=== PATIENT | male | born 1935 | race Caucasian/White ===

== ENCOUNTER → 2016-10-10 | Outpatient (REF) ==
[~2016-10-10] MED LIST: AMBIEN 5MG TABLE5 MG PO; COENZYME Q-101 POW PO; COREG 6.256.25 MG/TA PO; EPA/GLA1 SGL PO; INDOCIN 25MG CA25 MG PO; LASIX 20MG TABL20 MG PO; NORCO 325 MG-51 TAB PO; ZESTRIL 10MG10 MG PO; ZOCOR 20MG20 MG PO; [UNRECOGNIZED DRUG - OTHER] PO
[2016-10-10 10:58] LABS: PSA-TOTAL 0.48 ng/mL (0-4)
[2016-10-10 11:36] LABS: THYROID STIMULATING HORMONE 2.9 uIU/mL (0.465-4.680)
== END ==
LOC: ZLAB.WCH 10:11
PROVIDERS: Medical Genetics Clinical Genetics (M.D.)
DX: Z01.89 Encounter for other specified special examinations (principal)
CPT/HCPCS: G0103

== ENCOUNTER → 2017-03-19 | Outpatient (REF) ==
[2017-03-21 01:27] LABS: CALCIUM 9.1 mg/dL (8.4-10.2); CREATININE, serum 1.21 mg/dL (0.66-1.25); POTASSIUM 4.4 mmol/L (3.4-5.0)
== END ==
LOC: ZLAB.WCH 18:18
PROVIDERS: Internal Medicine Cardiovascular Disease
DX: Z01.89 Encounter for other specified special examinations (principal)

== ENCOUNTER → 2017-04-15 | Outpatient (REF) ==
[2017-04-15 19:40] LABS: PSA-TOTAL 0.5 ng/mL (0-4); THYROID STIMULATING HORMONE 3.12 uIU/mL (0.465-4.680)
== END ==
LOC: ZLAB.WCH 18:28
PROVIDERS: Internal Medicine
DX: Z01.89 Encounter for other specified special examinations (principal)
CPT/HCPCS: G0103

== ENCOUNTER → 2017-05-16 | Outpatient (CLI) | payer MEDICARE, BC | LOC: COL.PUL 07:35 | DX: R06.00 Dyspnea, unspecified (principal) ==

== ENCOUNTER → 2017-10-10 | Outpatient (REF) | LOC: ZLAB.WCH 18:26 | DX: Z01.89 Encounter for other specified special examinations (principal) ==

== ENCOUNTER → 2018-06-03 | Outpatient (REF) ==
[2018-06-03 17:03] LABS: THYROID STIMULATING HORMONE 3.85 uIU/mL (0.465-4.680)
[2018-06-03 17:19] LABS: PSA-TOTAL 0.46 ng/mL (0-4)
== END ==
LOC: ZLAB.WCH 16:09
PROVIDERS: Internal Medicine
DX: Z01.89 Encounter for other specified special examinations (principal)
CPT/HCPCS: G0103

== ENCOUNTER 2021-06-03 23:31 | Inpatient (IN) | payer MEDICARE, BC ==
[~2021-06-03] VITALS: Ht 183 cm; Wt 81.2 kg
[2021-06-03] MEDS ORDERED: MYSOLINE 5050 MG/TAB PO (23:52)
[2021-06-03] MEDS ORDERED: KLONOPIN 1MG1 MG PO (23:52)
[2021-06-03] MEDS ORDERED: [UNRECOGNIZED DRUG - OTHER] PO (23:53)
[2021-06-03] MEDS ORDERED: COLCHICINE PO (23:53)
[2021-06-03] MEDS ORDERED: SYNTHROID0.05 MG/TA PO (23:53)
[2021-06-03] MEDS ORDERED: PRINIVIL20 MG PO (23:55)
[2021-06-04 01:30] VITALS: BP 156/70; PULSE 71; TEMP 97.4
[2021-06-04 02:38] LABS: BASO % 0.4 % (0.0-2.0); EOS # 0.4 (0.0-0.7); EOS % 4.3 % (0-4.0); GRAN # 5.8 (1.4-6.5); GRAN % 67.1 % (42.2-75.2); HEMATOCRIT 37.6 % (42.0-52.0); HEMOGLOBIN 12.6 g/dl (13.5-18.0); LYMPH # 1.5 (1.2-3.4); MEAN CELL VOLUME 91 fl (80.0-100.0); MEAN CORPUSCULAR HEMOGLOBIN 30 pg (27.0-31.0); MEAN CORPUSCULAR HGB CONC 34 g/dl (33.0-37.0); MONO # 0.8 (0.1-0.6); MONO % 9.8 % (1.7-9.3); PLATELET COUNT 152 K/mm3 (130-400); RED BLOOD COUNT 4.14 M/mm3 (4.20-5.60); REDCELL DISTRIBUTION WIDTH-CV 14.4 % (11.5-14.5)
[2021-06-04 02:41] LABS: COLLECTION METHOD CATHETER
[2021-06-04 02:50] LABS: ALBUMIN 3.7 gm/dL (3.5-5.0); BILIRUBIN,TOTAL 0.7 mg/dL (0.0-1.0); CALCIUM 8.8 mg/dL (8.4-10.2); CREATININE, serum 0.98 (0.66-1.25); POTASSIUM 3.8 mmol/L (3.4-5.0); TOTAL PROTEIN 6.8 gm/dL (6.4-8.2)
[2021-06-04 02:54] LABS: INR 1.1 (0.8-3.0); PROTHROMBIN TIME 12.4 SECONDS (9.7-12.8)
[2021-06-04 02:58] LABS: PRE ALBUMIN 18.3 mg/dL (17.6-36.0)
[2021-06-04 03:04] LABS: MUCOUS Present /lpf; PH 5 (5-8); SQUAMOUS EPITHELIAL None Seen /hpf; URINE APPEARANCE Clear; URINE BACTERIA Rare /hpf; URINE BILIRUBIN Negative (NEGATIVE); URINE BLOOD 1+ (NEGATIVE); URINE COLOR Yellow; URINE GLUCOSE Negative (NEGATIVE); URINE KETONE Negative (NEGATIVE); URINE LEUKOCYTE ESTERASE Negative (NEGATIVE); URINE NITRATE Negative (NEGATIVE); URINE PROTEIN(semi-quant) Negative (NEGATIVE); URINE UROBILINOGEN Negative (NEGATIVE)
[2021-06-04 08:00] VITALS: BP 146/63; PULSE 67; TEMP 97.4
[2021-06-04 11:27] VITALS: BP 159/63; PULSE 60; TEMP 97.8
[2021-06-04 16:51] VITALS: BP 150/55; PULSE 61; TEMP 98.1
[2021-06-04 20:00] VITALS: BP 149/66; PULSE 66; TEMP 98.3
[2021-06-05 04:05] VITALS: BP 153/63; PULSE 62; TEMP 98
[2021-06-05 06:52] LABS: HEMOGLOBIN 11.9 g/dl (13.5-18.0); MEAN CELL VOLUME 93 fl (80.0-100.0); MEAN CORPUSCULAR HEMOGLOBIN 31 pg (27.0-31.0); MEAN CORPUSCULAR HGB CONC 33 g/dl (33.0-37.0); MEAN PLATELET VOLUME 10.2 fl (7.4-10.4); PLATELET COUNT 163 K/mm3 (130-400); RED BLOOD COUNT 3.86 M/mm3 (4.20-5.60); REDCELL DISTRIBUTION WIDTH-CV 14.1 % (11.5-14.5)
[2021-06-05 06:55] LABS: HEMATOCRIT 35.9 % (42.0-52.0)
[2021-06-05 07:19] LABS: CALCIUM 8.3 mg/dL (8.4-10.2); CREATININE, serum 0.86 (0.66-1.25); POTASSIUM 3.6 mmol/L (3.4-5.0)
[2021-06-05 08:00] VITALS: BP 143/70; PULSE 78; TEMP 97.8
[2021-06-05 11:19] VITALS: BP 150/88; PULSE 62; TEMP 97.5
[2021-06-05 15:15] VITALS: BP 153/61; PULSE 66; TEMP 97.7
[2021-06-05 19:23] VITALS: BP 162/68; PULSE 78; TEMP 98.4
[2021-06-05 23:22] VITALS: BP 163/74; PULSE 75; TEMP 98.5
[2021-06-06] VITALS (16 sets, daily range): BP systolic 124–151; BP diastolic 50–84; PULSE 59–70; TEMP 97.5–98.4
[2021-06-06 07:17] LABS: BASO % 0.5 % (0.0-2.0); EOS # 0.5 (0.0-0.7); EOS % 6.2 % (0-4.0); GRAN # 4.4 (1.4-6.5); GRAN % 56.6 % (42.2-75.2); HEMATOCRIT 37.2 % (42.0-52.0); HEMOGLOBIN 12.4 g/dl (13.5-18.0); LYMPH % 25.1 % (20.0-51.0); MEAN CELL VOLUME 92 fl (80.0-100.0); MEAN CORPUSCULAR HEMOGLOBIN 31 pg (27.0-31.0); MEAN CORPUSCULAR HGB CONC 33 g/dl (33.0-37.0); MEAN PLATELET VOLUME 10.5 fl (7.4-10.4); MONO # 0.9 (0.1-0.6); MONO % 11.1 % (1.7-9.3); PLATELET COUNT 159 K/mm3 (130-400); RED BLOOD COUNT 4.03 M/mm3 (4.20-5.60); REDCELL DISTRIBUTION WIDTH-CV 14.1 % (11.5-14.5)
[2021-06-06 07:55] LABS: CALCIUM 8.3 mg/dL (8.4-10.2); CREATININE, serum 0.86 (0.66-1.25); POTASSIUM 3.8 mmol/L (3.4-5.0)
[2021-06-07 05:26] VITALS: BP 136/52; PULSE 75; TEMP 98.9
[2021-06-07 07:12] LABS: HEMOGLOBIN 11.8 g/dl (13.5-18.0)
[2021-06-07 07:18] LABS: HEMATOCRIT 36.1 % (42.0-52.0)
[2021-06-07 07:36] VITALS: BP 99/54; PULSE 77; TEMP 98.4
[2021-06-07 11:20] VITALS: BP 107/56; PULSE 69; TEMP 97.4
[2021-06-07 15:54] VITALS: BP 136/50; PULSE 73; TEMP 97.8
[2021-06-07 19:47] VITALS: BP 134/54; PULSE 72; TEMP 98.2
[2021-06-08 00:21] VITALS: BP 148/57; PULSE 75; TEMP 98.3
[2021-06-08 03:54] VITALS: BP 126/53; PULSE 66; TEMP 98.1
[2021-06-08 07:15] LABS: BASO % 0.3 % (0.0-2.0); EOS # 0.2 (0.0-0.7); EOS % 2.1 % (0-4.0); GRAN # 5.9 (1.4-6.5); GRAN % 65.7 % (42.2-75.2); HEMOGLOBIN 11.3 g/dl (13.5-18.0); LYMPH # 1.7 (1.2-3.4); LYMPH % 18.9 % (20.0-51.0); MEAN CELL VOLUME 91 fl (80.0-100.0); MEAN CORPUSCULAR HEMOGLOBIN 31 pg (27.0-31.0); MEAN CORPUSCULAR HGB CONC 33 g/dl (33.0-37.0); MEAN PLATELET VOLUME 10.5 fl (7.4-10.4); MONO # 1.1 (0.1-0.6); MONO % 12.1 % (1.7-9.3); PLATELET COUNT 178 K/mm3 (130-400)
[2021-06-08 07:22] VITALS: BP 130/58; PULSE 69; TEMP 97.5
[2021-06-08 07:23] LABS: CALCIUM 8.2 mg/dL (8.4-10.2); CREATININE, serum 0.95 (0.66-1.25); HEMATOCRIT 33.8 % (42.0-52.0)
[2021-06-08] MEDS ORDERED: ASPI325T6 PO (08:56)
[2021-06-08] MEDS ORDERED: NORCO 325 MG-7.1 TAB PO (08:57)
[2021-06-08 12:16] VITALS: BP 135/57; PULSE 76; TEMP 98.4
[2021-06-08 15:12] VITALS: BP 139/57; PULSE 72; TEMP 97.5
[2021-06-08 19:22] VITALS: BP 121/72; PULSE 96; TEMP 98.2
[2021-08-08] MEDS ORDERED: ASPIRIN 32325 MG/TAB PO (13:31)
== END 2021-06-08 20:30 | DRG 481 ==
LOC: MEDICAL 23:31 → SURG 06-04 00:17
PROVIDERS: Nurse Practitioner Family; Orthopaedic Surgery; Physician Assistant; ADMIT Internal Medicine
PROC: 0QH734Z Insertion of Internal Fixation Device into Left Upper Femur, Percutaneous Approach (ICD-10-PCS; principal; 2021-06-06 13:45)
DX: S72.002A Fracture of unspecified part of neck of left femur, initial encounter for closed fracture (principal); I50.20 Unspecified systolic (congestive) heart failure; Z95.0 Presence of cardiac pacemaker; E03.9 Hypothyroidism, unspecified; F03.90 Unspecified dementia, unspecified severity, without behavioral disturbance, psychotic disturbance, mood disturbance, and anxiety; I25.10 Atherosclerotic heart disease of native coronary artery without angina pectoris; Z96.653 Presence of artificial knee joint, bilateral; Z96.611 Presence of right artificial shoulder joint; Z66 Do not resuscitate; I11.0 Hypertensive heart disease with heart failure; Z85.038 Personal history of other malignant neoplasm of large intestine; I25.2 Old myocardial infarction
CPT/HCPCS: 99231-AI; 99232-AI; 99239; A4314; A9284; C1713; J0690; J1644; J2250; J2405; J3010

== ENCOUNTER 2021-08-11 08:44 | Outpatient (CLI) | payer MEDICARE, BC ==
[2021-08-11] VITALS (18 sets, daily range): BP systolic 122–171; BP diastolic 27–94; PULSE 64–96; TEMP 97.9
[~2021-08-11 08:44] MED LIST changes: +ASPI325T6 PO; +ASPIRIN 32325 MG/TAB PO; +COLCHICINE PO; +KLONOPIN 1MG1 MG PO; +MYSOLINE 5050 MG/TAB PO; +NORCO 325 MG-7.1 TAB PO; +PRINIVIL20 MG PO; +SYNTHROID0.05 MG/TA PO; +[UNRECOGNIZED DRUG - OTHER] PO
[2021-08-11] MEDS ORDERED: OMEGA-3 1000 MG1 CAP PO (09:31)
[2021-08-11] MEDS ORDERED: NORVASC2.5 MG PO (09:32)
[2021-08-11] MEDS ORDERED: B-121000 MCG PO (09:33)
[2021-08-11] MEDS ORDERED: THE MEDICINE S200 M2 PO (09:35)
--- NOTE | 2021-08-11 10:55 | NUR ---
PT SUPINE IN CT SCANNER, DR BOWIE IN TO START PROCEDURE
--- NOTE | 2021-08-11 11:15 | NUR ---
2 SAMPLES RECIEVED IN FORMULIN, BANDAID OVER SITE, PT ROLLED OVER TO CART, VSS TO EU
--- NOTE | 2021-08-11 14:40 | NUR ---
Pt escorted to exit at this time. Pt has had his repeat xray and is ready for discharge. I have reviewed dc instructions r/t lung biopsy with pt and his . They verbalize understanding. IV was dc'd with cath intact dressing applied. Pt was able to ambulate to bathroom with walker with steady gait prior to discharge. At time of departure pt denied any sob, pain with inspiration, dizziness or any questions or concerns related to procedure today.
== END 2021-08-11 14:40 | disposition home or self-care (01) ==
LOC: COL.RAD 08:44
DX: C21.8 Malignant neoplasm of overlapping sites of rectum, anus and anal canal (principal)
CPT/HCPCS: 32106

== ENCOUNTER 2023-06-20 03:27 | Emergency (ER) | payer MEDICARE, BC ==
[~2023-06-20 03:27] MED LIST changes: +B-121000 MCG PO; +DECADRON6 MG PO; +LIPITOR 40MG TA40 MG PO; +MONODOX100 PO; +NORVASC2.5 MG PO; +OMEGA-3 1000 MG1 CAP PO; +OXYGEN; +PRINIVIL10 MG PO; -PRINIVIL20 MG PO; +PROAIR HFA0.09 MG/AC IH; +PROTONIX20 MG PO; +THE MEDICINE S200 M2 PO; +VITAMIND3 5000 PO
[2023-06-20 03:30] VITALS: TEMP 98.1
[2023-06-20 04:06] LABS: BASO % 0.1 % (0.0-2.0); GRAN # 8.8 K/mm3 (1.4-6.5); GRAN % 83.9 % (42.2-75.2); HEMATOCRIT 42.1 % (42.0-52.0); HEMOGLOBIN 13.9 g/dl (13.5-18.0); LYMPH # 0.7 K/mm3 (1.2-3.4); LYMPH % 6.5 % (20.0-51.0); MEAN CELL VOLUME 86 fl (80.0-100.0); MEAN CORPUSCULAR HEMOGLOBIN 28 pg (27-31); MEAN CORPUSCULAR HGB CONC 33 g/dl (33.0-37.0); MEAN PLATELET VOLUME 9.6 fl (7.4-10.4); MONO # 0.9 K/mm3 (0.1-0.6); MONO % 8.9 % (1.7-9.3); PLATELET COUNT 166 K/mm3 (130-400); RED BLOOD COUNT 4.92 M/mm3 (4.20-5.60); REDCELL DISTRIBUTION WIDTH-CV 14.4 % (11.5-14.5)
[2023-06-20 04:26] LABS: ALBUMIN 2.6 gm/dL (3.4-4.8); BILIRUBIN,TOTAL 0.6 mg/dL (0.2-1.2); CALCIUM 8.3 mg/dL (8.4-10.2); CREATININE, serum 0.79 mg/dL (0.72-1.25); POTASSIUM 3.4 mmol/L (3.5-4.5)
[2023-06-20 06:01] VITALS: BP 132/70; PULSE 64
--- NOTE | 2023-06-21 15:22 | NUR ---
[facility] received consult for patient that may need goals of care/comfort care discussion due to multiple ED visits. FRANCIA followed up with Vishnu at [facility] who advised patient discharged home today on hospice.
== END 2023-06-20 06:02 ==
LOC: COL.ER 03:27
PROVIDERS: Family Medicine
DX: U07.1 COVID-19 (principal); J96.11 Chronic respiratory failure with hypoxia; J98.9 Respiratory disorder, unspecified; Z99.81 Dependence on supplemental oxygen; Z28.310 Unvaccinated for COVID-19; Z73.0 Burn-out